=== PATIENT | female | born 1995 | race Caucasian/White ===

== ENCOUNTER 2017-06-27 18:27 | Emergency (ER) | payer OTHER ==
[~2017-06-27] VITALS: Ht 162.6 cm; Wt 54.4 kg
[2017-06-27 18:33] VITALS: BP_SYST 120
--- NOTE | 2017-06-27 18:35 | NUR ---
Patient brought in by parent c/c dog bite to right hand after "breaking up a dog fight" at work place "[employer]". Pt presents with 2 minor wounds on right reyes surface of hand. no bleeding noted. Pt is up to date with tetanus shot.
--- NOTE | 2017-06-27 20:20 | NUR ---
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 Pt Left without been seen on stable condition.
== END 2017-06-27 20:20 | disposition left against medical advice (07) ==
LOC: SED 18:27
DX: S61.451A Open bite of right hand, initial encounter (principal); Z53.21 Procedure and treatment not carried out due to patient leaving prior to being seen by health care provider; W54.0XXA Bitten by dog, initial encounter; Y93.89 Activity, other specified; Y92.89 Other specified places as the place of occurrence of the external cause; Y99.8 Other external cause status